=== PATIENT | male | born 1985 | race Caucasian/White ===

== ENCOUNTER → 2023-03-24 | Emergency (ER) | payer OTHER ==
[~2023-03-24] VITALS: Ht 170.2 cm; Wt 66.0 kg
[~2023-03-24] MED LIST: AMOX1TAB16 PO; IBUP-2029 PO; KETOROLAC 60MG/2ML VIAL IM NR; TRAM50TA3 MT
[2023-03-24 11:37] VITALS: TEMP 98.5; O2SAT 100
[2023-03-24 12:10] VITALS: BP 125/75; PULSE 64; RESP 16
== END ==
LOC: ER 10:58
DX: K04.7 Periapical abscess without sinus (principal)
CPT/HCPCS: 99283; 96372; J1885

== ENCOUNTER 2023-04-12 10:56 | Emergency (ER) | payer OTHER ==
[~2023-04-12] VITALS: Ht 177.8 cm; Wt 70.0 kg
[~2023-04-12 10:56] MED LIST changes: -KETOROLAC 60MG/2ML VIAL IM NR
[2023-04-12 11:25] VITALS: BP 122/87; PULSE 101; RESP 18; TEMP 98.6; O2SAT 100
== END 2023-04-12 11:52 | disposition home or self-care (01) ==
LOC: ER 10:56
DX: K02.9 Dental caries, unspecified (principal)
CPT/HCPCS: 99281

== ENCOUNTER 2023-04-28 10:29 | Emergency (ER) | payer OTHER ==
[~2023-04-28] VITALS: Ht 170.2 cm; Wt 68.0 kg
[2023-04-28 10:42] VITALS: O2SAT 98
[2023-04-28] MEDS ORDERED: KETOROLAC 60MG/2ML VIAL IM STA (10:49)
[2023-04-28] MEDS ORDERED: IBUP-2029 PO (11:15)
[2023-04-28] MEDS ORDERED: TRAM50TA3 MT (11:15)
[2023-04-28 11:50] VITALS: BP 139/67; PULSE 65; RESP 18; TEMP 99
== END 2023-04-28 11:51 | disposition home or self-care (01) ==
LOC: ER 10:29
DX: K08.89 Other specified disorders of teeth and supporting structures (principal); Z91.040 Latex allergy status; Z91.010 Allergy to peanuts
CPT/HCPCS: 96372; 99283; J1885; Z7610

== ENCOUNTER 2024-12-08 16:37 | Emergency (ER) | payer SELFPAY ==
[~2024-12-08] VITALS: Ht 170.2 cm; Wt 75.0 kg
[2024-12-08 16:38] VITALS: O2SAT 97
[2024-12-08 16:49] VITALS: BP 132/81; PULSE 71; RESP 18; TEMP 36.7; O2SAT 99
[2024-12-08] MEDS ORDERED: IBUP-2030 MT (17:58)
[2024-12-08] MEDS ORDERED: CYCL5TAB3 MT (17:58)
== END 2024-12-08 18:09 | disposition home or self-care (01) ==
LOC: ER 16:37
DX: S16.1XXA Strain of muscle, fascia and tendon at neck level, initial encounter (principal); Z79.899 Other long term (current) drug therapy; Z91.040 Latex allergy status; Z91.010 Allergy to peanuts; V49.40XA Driver injured in collision with unspecified motor vehicles in traffic accident, initial encounter; Y93.89 Activity, other specified; Y92.89 Other specified places as the place of occurrence of the external cause; Y99.8 Other external cause status
CPT/HCPCS: 99283